=== PATIENT | female | born 1980 | race African-American/Black ===

== ENCOUNTER 2020-06-04 07:26 | Emergency (ER) | payer BC, MEDICAID, OTHER ==
[~2020-06-04] VITALS: Ht 170.2 cm; Wt 68.0 kg
--- NOTE | 2020-06-04 07:50 | NUR ---
PATIENT WAS MSE BY DR RAMIREZ IN ROOM 05A.
--- NOTE | 2020-06-04 09:25 | NUR ---
DR RAMIREZ MADE PATIENT AWARE OF TEST RESULTS.
--- NOTE | 2020-06-04 09:30 | NUR ---
Patient discharged to home in stable condition. Written and verbal after care instructions given. Patient verbalizes understanding of instructions. Stressed follow up or return to ER for worsening s/s.
[2020-06-04 09:38] VITALS: BP 127/87
== END 2020-06-04 09:40 | disposition home or self-care (01) ==
LOC: ER 07:26
DX: S06.0X9A Concussion with loss of consciousness of unspecified duration, initial encounter (principal); R40.2253 Coma scale, best verbal response, oriented, at hospital admission; R40.2363 Coma scale, best motor response, obeys commands, at hospital admission; R40.2143 Coma scale, eyes open, spontaneous, at hospital admission; Y08.89XA Assault by other specified means, initial encounter; Y92.89 Other specified places as the place of occurrence of the external cause; F15.10 Other stimulant abuse, uncomplicated; R03.0 Elevated blood-pressure reading, without diagnosis of hypertension
CPT/HCPCS: 70450; A4663